=== PATIENT | male | born 1990 | race Caucasian/White ===

== ENCOUNTER 2020-05-12 01:59 | Emergency (ER) | payer OTHER ==
[2020-05-12 02:21] VITALS: BP 146/93; PULSE 103; TEMP 98.2; BMI 29.9
--- NOTE | 2020-05-12 02:32 | PDOC ---
History of Present Illness - General Chief Complaint: Psychiatric Stated Complaint: ANXIETY, CHEST PAIN Time Seen by Provider: 05/12/20 02:01 - History of Present Illness Initial Comments: This 30-year-old man with an underlying history of anxiety arrives in the emergency room accompanied by his father with few hour history of intermittent chest discomfort, mild headache and anxiety. This evening, the patient smoked marijuana at a friend's house ("1 hit on a joint"). He had been feeling somewhat anxious prior to smoking the marijuana, because of an upcoming general medical appointment (in 2 days, on May 13) . After this, his feelings of anxiety increased and he began to feel the mild chest discomfort that he has frequently. Patient states that he can feel his chest discomfort when he "over thinks" and worries, generally about health issues. He also is concerned about intermittent "sinus pressure" that is currently causing a mild headache. He denies current shortness of breath, palpitations, fever/chills, cough. No daily medications; rarely takes Xanax (obtained from friends) Denies smoking; no daily alcohol or other recreational drug use No known allergies Past History - Medical History Allergies/Adverse Reactions: Allergies Allergy/AdvReac Type Severity Reaction Status Date / Time No Known Allergies Allergy Verified 09/25/15 13:13 Home Medications: Ambulatory Orders NK [No Known Home Medication] 09/25/15 - Surgical History Abdominal Surgery: Yes (hernia repair) - Psycho-Social/Smoking History Smoking History: Current every day smoker Have you smoked in the past 12 months: Yes 'Breaking Loose' booklet given: 09/25/15 Review of Systems - Review of Systems Able to Perform ROS?: Yes Comments:: 12 point review of systems is negative except for what is noted in the history of present illness *Physical Exam - Physical Exam GENERAL: Adult male, alert and oriented x3, anxious but in no acute distress HEAD: Normal with no signs of trauma. EYES: PERRLA, EOMI, sclera anicteric, conjunctiva clear. ENT: Ears normal, nares patent, oropharynx clear without exudates. Dry mucous membranes. NECK: Normal range of motion, supple without lymphadenopathy, JVD, or masses. LUNGS: Breath sounds equal, clear to auscultation bilaterally. No wheezes, and no crackles. HEART:Regular rate and rhythm, normal S1 and S2 without murmur, rub or gallop. ABDOMEN:.normal bowel sounds No guarding,tenderness or rebound.No masses No distention. EXTREMITIES: Normal range of motion, no edema. No clubbing or cyanosis. No erythema, or tenderness. NEUROLOGICAL: Cranial nerves II through XII grossly intact. Normal speech. Normal gait no focal neurological deficits . Twelve-lead electrocardiogram is performed interpreted by me: Normal sinus rhythm 98 bpm intervals, axis and waveforms are all normal. No evidence of acute ST or T wave abnormalities. No evidence of acute cardiac arrhythmia Medical Decision Making - Medical Decision Making This 30-year-old man presents with few hour history of feeling anxious with mild chest discomfort and mild headache. Anxiety, which had been present earlier in the evening, was exacerbated after he smoked cannabis at a friend's house. No significant associated symptoms with his chest discomfort which generally resolved prior to examination. Exam as noted was normal. EKG as noted above showed no signs of acute ischemia or other abnormality. Patient has no significant risk factors for coronary artery disease. He does have a significant past history of anxiety. He states that he had been seeing a therapist regarding his anxiety but because of coronavirus concerns, he has not been able to continue his therapy sessions. He has a scheduled appointment with his general medical doctor on May 13. Patient was informed that his EKG and exam was normal. He should avoid cannabis use, especially if he is feeling anxious prior to using the drug. He should investigate whether he can follow-up with his anxiety therapist at this time. He should, of course follow-up with his general medical doctor in 2 days as scheduled. If he has any persistent chest pain, palpitations, shortness of breath prior to seeing his doctor, he should return to the ER Discharge - Discharge Information Problems reviewed: Yes Clinical Impression/Diagnosis: Anxiety Condition: Stable Disposition: HOME - Follow up/Referral - Patient Discharge Instructions Patient Printed Discharge Instructions: DI for Anxiety -- Adult Additional Instructions: Try to get plenty of rest Eat regular meals and drink plenty of fluids Follow-up with your general medical doctor on May 13 as planned Continue with outpatient therapy for your anxiety as discussed Return to ER if you have persistent chest pain , palpitations ,shortness of breath - Post Discharge Activity
--- NOTE | 2020-05-12 12:04 | EKG ---
Test Reason : Blood Pressure : / mmHG Vent. Rate : 098 BPM Atrial Rate : 098 BPM P-R Int : 156 ms QRS Dur : 088 ms QT Int : 320 ms P-R-T Axes : 051 047 036 degrees QTc Int : 408 ms NORMAL SINUS RHYTHM NORMAL ECG WHEN COMPARED WITH ECG OF 21-AUG-2011 15:33, NO SIGNIFICANT CHANGE WAS FOUND Confirmed by Max Wills MD ([id number]) on 05/12/2020 12:03:59 PM Referred By: INGRID BROWNING Confirmed By:Max Wills MD
== END 2020-05-12 02:38 | disposition home or self-care (01) ==
LOC: FER 01:59
DX: F41.9 Anxiety disorder, unspecified (principal)
CPT/HCPCS: 93005; 99283-25

== ENCOUNTER 2020-09-11 07:17 | Emergency (ER) | payer OTHER ==
[2020-09-11 07:20] VITALS: BP 118/75; PULSE 73; TEMP 97.9; BMI 29.9
== END 2020-09-11 07:54 | disposition home or self-care (01) ==
LOC: FER 07:17
DX: F41.9 Anxiety disorder, unspecified (principal); F32.1 Major depressive disorder, single episode, moderate; G47.00 Insomnia, unspecified
CPT/HCPCS: 99283-25